=== PATIENT | male | born 1970 | race Caucasian/White ===

== ENCOUNTER 2018-11-01 12:41 | Emergency (ER) | payer MEDICAID ==
[~2018-11-01] VITALS: Ht 188 cm; Wt 79.5 kg
[2018-11-01] MEDS ORDERED: HYDROmorphone 1 MG/ML, 1ML INJ IM ONE (13:00)
[2018-11-01] MEDS ORDERED: HYDROmorphone 2 MG/ML, 1ML ONE ×2 (13:05→14:59)
[2018-11-01] MEDS ORDERED: HYDROmorphone 2 MG/ML, 1ML IM ONE (13:30)
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
--- NOTE | 2018-11-01 14:05 | NUR ---
REPORT FROM HERMILA ROSA. ASSUMED CARE OF PATIENT IN ROOM 25 AT THIS TIME, PATIENT IN CT.
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
--- NOTE | 2018-11-01 14:24 | NUR ---
SIRIA AGUAYO (FRIEND): .
[2018-11-01] MEDS ORDERED: HYDROmorphone 1 MG/ML, 1ML INJ IV ONE (15:00)
--- NOTE | 2018-11-01 15:02 | NUR ---
PATIENT C/O 11/27 RT SHOULDER PAIN, PAIN MEDICATION ADMINISTERED PER ORDER. VS UPDATED IN CHART. CT RESULTS BACK, CHART UP FOR RECHECK. AWAITING FURTHER ORDERS.
[2018-11-01 15:53] VITALS: BP 111/70
== END 2018-11-01 15:55 | disposition home or self-care (01) ==
LOC: ED 15:12
DX: S42.021A Displaced fracture of shaft of right clavicle, initial encounter for closed fracture (principal); S22.41XA Multiple fractures of ribs, right side, initial encounter for closed fracture; S80.812A Abrasion, left lower leg, initial encounter; V00.141A Fall from scooter (nonmotorized), initial encounter; Y93.89 Activity, other specified; Y92.89 Other specified places as the place of occurrence of the external cause; Y99.8 Other external cause status
CPT/HCPCS: 71101; 71250; 73000; 96372; 96374; 99284; J1170